=== PATIENT | male | born 1955 | race Caucasian/White ===

== ENCOUNTER 2019-08-18 08:18 | Outpatient (CLI) | payer MEDICARE, SELFPAY ==
[2019-08-18 08:54] LABS: Abs Immature Grans 0.02 k/cumm (0.0-0.09); Absolute Basophil Count 0.03 k/cumm (0.0-0.2); Absolute Eosinophil Count 0.03 k/cumm (0.0-0.7); Absolute Lymphocyte Count 0.65 k/cumm (1.2-3.4); Absolute Monocyte Count 0.88 k/cumm (0.11-0.7); Absolute Neutrophil Count 7.22 k/cumm (1.2-6.7); Basophils % 0.3; Eosinophils % 0.3; HCT 36.1 % (40.0-50.0); HGB 11.6 g/dL (13.5-17.5); Immature Grans % 0.2 %; Lymphocytes % 7.4; Mean Corp. HGB Concentration 32.1 g/dL (32.0-36.0); Mean Corpuscular Hemoglobin 30.6 pg (27.0-33.0); Mean Corpuscular Volume 95.3 fL (80-95); Mean Platelet Volume 8.5 fL (8.0-11.0); Neutrophils % 81.8; Platelet Count 350 x1000/uL (130-400); RBC 3.79 m/cumm (4.50-6.00); RBC Distribution Width 11.6 % (11.8-14.1); White Blood Cell Count 8.83 k/cumm (4.4-10.8)
[2019-08-18 09:11] LABS: ALT 18 U/L (16-63); AST 31 U/L (15-37); Albumin 2.8 g/dL (3.4-5.0); Alkaline Phosphatase 59 U/L (46-116); Anion Gap 7.1 mmol/L (3-11); BUN 17 mg/dL (7-18); Bilirubin, Total 0.3 mg/dL (0.2-1.0); CO2 32.9 mmol/L (21.0-32.0); CREATININE 0.67 mg/dL (0.70-1.30); Calcium 8.8 mg/dL (8.5-10.1); Chloride 97 mmol/L (98-107); Glucose 106 mg/dL (74-106); Magnesium 1.9 mg/dL (1.8-2.4); Potassium 4.2 mmol/L (3.5-5.1); Sodium 137 mmol/L (136-145); Total Protein 7.3 g/dL (6.4-8.2)
== END 2019-08-18 08:38 ==
PROVIDERS: PCP Internal Medicine Hematology & Oncology; Visit Provider Internal Medicine Hematology & Oncology
DX: C01 Malignant neoplasm of base of tongue (principal)
CPT/HCPCS: 36415; 80053; 83735; 85025

== ENCOUNTER 2019-08-25 08:03 | Outpatient (CLI) | payer MEDICARE, SELFPAY ==
[2019-08-25 08:19] LABS: Abs Immature Grans 0.01 k/cumm (0.0-0.09); Absolute Basophil Count 0.02 k/cumm (0.0-0.2); Absolute Eosinophil Count 0.15 k/cumm (0.0-0.7); Absolute Lymphocyte Count 0.79 k/cumm (1.2-3.4); Absolute Monocyte Count 1.02 k/cumm (0.11-0.7); Absolute Neutrophil Count 6.43 k/cumm (1.2-6.7); Basophils % 0.2; Eosinophils % 1.8; HCT 37.8 % (40.0-50.0); Immature Grans % 0.1 %; Lymphocytes % 9.4; Mean Corp. HGB Concentration 31.7 g/dL (32.0-36.0); Mean Corpuscular Hemoglobin 30.2 pg (27.0-33.0); Mean Platelet Volume 8.4 fL (8.0-11.0); Monocytes % 12.1; Neutrophils % 76.4; Platelet Count 332 x1000/uL (130-400); RBC 3.98 m/cumm (4.50-6.00); RBC Distribution Width 11.7 % (11.8-14.1); White Blood Cell Count 8.42 k/cumm (4.4-10.8)
[2019-08-25 08:47] LABS: ALT 25 U/L (16-63); AST 30 U/L (15-37); Albumin 2.8 g/dL (3.4-5.0); Alkaline Phosphatase 66 U/L (46-116); Anion Gap 5.4 mmol/L (3-11); BUN 23 mg/dL (7-18); Bilirubin, Total 0.4 mg/dL (0.2-1.0); CO2 37.6 mmol/L (21.0-32.0); Calcium 9.2 mg/dL (8.5-10.1); Chloride 93 mmol/L (98-107); Glucose 102 mg/dL (74-106); Magnesium 1.7 mg/dL (1.8-2.4); Potassium 3.7 mmol/L (3.5-5.1); Sodium 136 mmol/L (136-145); Total Protein 7.3 g/dL (6.4-8.2)
== END 2019-08-25 08:23 ==
PROVIDERS: PCP Internal Medicine Hematology & Oncology; Visit Provider Internal Medicine Hematology & Oncology
DX: C01 Malignant neoplasm of base of tongue (principal)
CPT/HCPCS: 36415; 80053; 83735; 85025

== ENCOUNTER 2019-09-01 08:32 | Outpatient (CLI) | payer MEDICARE, SELFPAY ==
[2019-09-01 08:55] LABS: Abs Immature Grans 0.03 k/cumm (0.0-0.09); Absolute Eosinophil Count 0.02 k/cumm (0.0-0.7); Absolute Lymphocyte Count 0.48 k/cumm (1.2-3.4); Absolute Monocyte Count 0.56 k/cumm (0.11-0.7); Absolute Neutrophil Count 9.52 k/cumm (1.2-6.7); Eosinophils % 0.2; HCT 33.9 % (40.0-50.0); HGB 10.7 g/dL (13.5-17.5); Immature Grans % 0.3 %; Lymphocytes % 4.5; Mean Corp. HGB Concentration 31.6 g/dL (32.0-36.0); Mean Platelet Volume 8.5 fL (8.0-11.0); Monocytes % 5.3; Neutrophils % 89.7; Platelet Count 264 x1000/uL (130-400); RBC 3.57 m/cumm (4.50-6.00); RBC Distribution Width 12.1 % (11.8-14.1); White Blood Cell Count 10.61 k/cumm (4.4-10.8)
[2019-09-01 09:11] LABS: ALT 22 U/L (16-63); AST 25 U/L (15-37); Alkaline Phosphatase 66 U/L (46-116); BUN 36 mg/dL (7-18); Bilirubin, Total 0.3 mg/dL (0.2-1.0); CREATININE 0.78 mg/dL (0.70-1.30); Calcium 9.1 mg/dL (8.5-10.1); Chloride 97 mmol/L (98-107); Glucose 91 mg/dL (74-106); Magnesium 1.8 mg/dL (1.8-2.4); Potassium 4.6 mmol/L (3.5-5.1); Sodium 136 mmol/L (136-145); Total Protein 6.9 g/dL (6.4-8.2)
== END 2019-09-01 08:52 ==
PROVIDERS: PCP Internal Medicine Hematology & Oncology; Visit Provider Internal Medicine Hematology & Oncology
DX: C01 Malignant neoplasm of base of tongue (principal)
CPT/HCPCS: 36415; 80053; 83735; 85025

== ENCOUNTER 2019-09-08 02:06 | Outpatient (RCR) | payer MEDICARE, SELFPAY | END 2019-09-12 23:59 | disposition home or self-care (01) | LOC: INF 02:06 | PROVIDERS: PCP Family Medicine; Visit Provider Internal Medicine Hematology & Oncology | DX: R69 Illness, unspecified (principal) ==

== ENCOUNTER 2019-09-08 08:40 | Outpatient (CLI) | payer MEDICARE, SELFPAY ==
[2019-09-08 09:04] LABS: Abs Immature Grans 0.01 k/cumm (0.0-0.09); Absolute Eosinophil Count 0.07 k/cumm (0.0-0.7); Absolute Lymphocyte Count 0.66 k/cumm (1.2-3.4); Absolute Monocyte Count 0.43 k/cumm (0.11-0.7); Absolute Neutrophil Count 3.29 k/cumm (1.2-6.7); Eosinophils % 1.6; HCT 32.4 % (40.0-50.0); HGB 10.4 g/dL (13.5-17.5); Immature Grans % 0.2 %; Lymphocytes % 14.8; Mean Corp. HGB Concentration 32.1 g/dL (32.0-36.0); Mean Corpuscular Hemoglobin 30.5 pg (27.0-33.0); Mean Platelet Volume 8.6 fL (8.0-11.0); Monocytes % 9.6; Neutrophils % 73.8; Platelet Count 190 x1000/uL (130-400); RBC 3.41 m/cumm (4.50-6.00); RBC Distribution Width 12.6 % (11.8-14.1); White Blood Cell Count 4.46 k/cumm (4.4-10.8)
[2019-09-08 09:16] LABS: ALT 21 U/L (16-63); AST 23 U/L (15-37); Albumin 3.1 g/dL (3.4-5.0); Alkaline Phosphatase 69 U/L (46-116); Anion Gap 4.6 mmol/L (3-11); BUN 26 mg/dL (7-18); Bilirubin, Total 0.2 mg/dL (0.2-1.0); CO2 34.4 mmol/L (21.0-32.0); CREATININE 0.88 mg/dL (0.70-1.30); Chloride 95 mmol/L (98-107); Glucose 103 mg/dL (74-106); Magnesium 1.6 mg/dL (1.8-2.4); Potassium 3.9 mmol/L (3.5-5.1); Sodium 134 mmol/L (136-145); Total Protein 7.2 g/dL (6.4-8.2)
== END 2019-09-08 09:00 ==
PROVIDERS: PCP Internal Medicine Hematology & Oncology; Visit Provider Internal Medicine Hematology & Oncology
DX: C01 Malignant neoplasm of base of tongue (principal)
CPT/HCPCS: 36415; 80053; 83735; 85025

== ENCOUNTER 2019-10-06 01:31 | Outpatient (RCR) | payer MEDICARE, SELFPAY ==
[2019-09-15] MEDS: Normal Saline Flush 10 ML SYR IVP (08:55)
[2019-09-15 09:01] LABS: Abs Immature Grans 0.01 k/cumm (0.0-0.09); Absolute Basophil Count 0.01 k/cumm (0.0-0.2); Absolute Eosinophil Count 0.04 k/cumm (0.0-0.7); Absolute Lymphocyte Count 0.49 k/cumm (1.2-3.4); Absolute Monocyte Count 0.18 k/cumm (0.11-0.7); Absolute Neutrophil Count 2.18 k/cumm (1.2-6.7); Basophils % 0.3; Eosinophils % 1.4; HCT 24.7 % (40.0-50.0); HGB 8.1 g/dL (13.5-17.5); Immature Grans % 0.3 %; Lymphocytes % 16.8; Mean Corp. HGB Concentration 32.8 g/dL (32.0-36.0); Mean Corpuscular Hemoglobin 31.3 pg (27.0-33.0); Mean Corpuscular Volume 95.4 fL (80-95); Mean Platelet Volume 9.1 fL (8.0-11.0); Monocytes % 6.2; RBC 2.59 m/cumm (4.50-6.00); RBC Distribution Width 12.8 % (11.8-14.1); White Blood Cell Count 2.91 k/cumm (4.4-10.8)
[2019-09-15 09:06] LABS: ALT 21 U/L (16-63); AST 23 U/L (15-37); Alkaline Phosphatase 62 U/L (46-116); Anion Gap 7.6 mmol/L (3-11); BUN 27 mg/dL (7-18); Bilirubin, Total 0.3 mg/dL (0.2-1.0); CO2 30.4 mmol/L (21.0-32.0); CREATININE 0.86 mg/dL (0.70-1.30); Calcium 8.3 mg/dL (8.5-10.1); Chloride 96 mmol/L (98-107); Glucose 93 mg/dL (74-106); Magnesium 1.4 mg/dL (1.8-2.4); Potassium 4.5 mmol/L (3.5-5.1); Sodium 134 mmol/L (136-145); Total Protein 6.6 g/dL (6.4-8.2)
[2019-09-15 09:26] LABS: Diff Comment Diff Reviewed; Platelet Count 95 x1000/uL (130-400)
[2019-09-15 09:27] LABS: RBC Morphology Normal
[2019-09-22 09:04] LABS: Abs Immature Grans 0.01 k/cumm (0.0-0.09); Absolute Eosinophil Count 0.01 k/cumm (0.0-0.7); Absolute Lymphocyte Count 0.27 k/cumm (1.2-3.4); Absolute Monocyte Count 0.21 k/cumm (0.11-0.7); Absolute Neutrophil Count 1.15 k/cumm (1.2-6.7); Eosinophils % 0.6; HCT 22.2 % (40.0-50.0); HGB 7.4 g/dL (13.5-17.5); Immature Grans % 0.6 %; Lymphocytes % 16.4; Mean Corp. HGB Concentration 33.3 g/dL (32.0-36.0); Mean Corpuscular Hemoglobin 31.4 pg (27.0-33.0); Mean Corpuscular Volume 94.1 fL (80-95); Mean Platelet Volume 9.5 fL (8.0-11.0); Monocytes % 12.7; Neutrophils % 69.7; RBC 2.36 m/cumm (4.50-6.00); RBC Distribution Width 12.9 % (11.8-14.1)
[2019-09-22] MEDS: Normal Saline Flush 10 ML SYR IVP (09:05)
[2019-09-22 09:23] LABS: ALT 25 U/L (16-63); AST 25 U/L (15-37); Albumin 2.8 g/dL (3.4-5.0); Alkaline Phosphatase 57 U/L (46-116); Anion Gap 4.7 mmol/L (3-11); BUN 22 mg/dL (7-18); Bilirubin, Total 0.2 mg/dL (0.2-1.0); CO2 30.3 mmol/L (21.0-32.0); CREATININE 0.92 mg/dL (0.70-1.30); Calcium 7.7 mg/dL (8.5-10.1); Chloride 94 mmol/L (98-107); Glucose 101 mg/dL (74-106); Magnesium 1.2 mg/dL (1.8-2.4); Potassium 4.3 mmol/L (3.5-5.1); Sodium 129 mmol/L (136-145); Total Protein 6.1 g/dL (6.4-8.2)
[2019-09-22 09:42] LABS: Platelet Count 83 x1000/uL (130-400); White Blood Cell Count 1.65 k/cumm (4.4-10.8)
[2019-09-22 09:43] LABS: Diff Comment Diff Reviewed; Hypochromasia 1+
[2019-09-25] MEDS: Normal Saline Flush 10 ML SYR IVP (08:54)
[2019-09-25 09:13] LABS: Absolute Basophil Count 0.01 k/cumm (0.0-0.2); Absolute Lymphocyte Count 0.41 k/cumm (1.2-3.4); Absolute Monocyte Count 0.37 k/cumm (0.11-0.7); Absolute Neutrophil Count 1.17 k/cumm (1.2-6.7); Basophils % 0.5; HCT 21.8 % (40.0-50.0); HGB 7.2 g/dL (13.5-17.5); Lymphocytes % 20.9; Mean Corpuscular Hemoglobin 31.2 pg (27.0-33.0); Mean Corpuscular Volume 94.4 fL (80-95); Mean Platelet Volume 9.7 fL (8.0-11.0); Monocytes % 18.9; Neutrophils % 59.7; Platelet Count 102 x1000/uL (130-400); RBC 2.31 m/cumm (4.50-6.00); RBC Distribution Width 13.7 % (11.8-14.1)
[2019-09-25 09:24] LABS: ALT 25 U/L (16-63); AST 27 U/L (15-37); Alkaline Phosphatase 54 U/L (46-116); Anion Gap 6.9 mmol/L (3-11); BUN 24 mg/dL (7-18); Bilirubin, Total 0.2 mg/dL (0.2-1.0); CO2 30.1 mmol/L (21.0-32.0); CREATININE 0.91 mg/dL (0.70-1.30); Calcium 8.1 mg/dL (8.5-10.1); Chloride 93 mmol/L (98-107); Glucose 97 mg/dL (74-106); Magnesium 1.2 mg/dL (1.8-2.4); Potassium 4.5 mmol/L (3.5-5.1); Sodium 130 mmol/L (136-145); Total Protein 6.5 g/dL (6.4-8.2)
[2019-09-25 09:32] LABS: White Blood Cell Count 1.96 k/cumm (4.4-10.8)
[2019-09-25 09:33] LABS: Diff Comment Diff Reviewed; Polychromasia Present
[2019-09-29] MEDS: Normal Saline Flush 10 ML SYR IVP (08:44)
[2019-09-29 09:01] LABS: Absolute Basophil Count 0.01 k/cumm (0.0-0.2); Absolute Eosinophil Count 0.01 k/cumm (0.0-0.7); Absolute Neutrophil Count 1.03 k/cumm (1.2-6.7); Basophils % 0.5; Eosinophils % 0.5; HCT 21.9 % (40.0-50.0); Lymphocytes % 16.2; Mean Corp. HGB Concentration 31.5 g/dL (32.0-36.0); Mean Corpuscular Hemoglobin 31.1 pg (27.0-33.0); Mean Corpuscular Volume 98.6 fL (80-95); Mean Platelet Volume 9.4 fL (8.0-11.0); Neutrophils % 55.8; Platelet Count 158 x1000/uL (130-400); RBC 2.22 m/cumm (4.50-6.00); RBC Distribution Width 15.7 % (11.8-14.1)
[2019-09-29 09:19] LABS: ALT 25 U/L (16-63); AST 27 U/L (15-37); Albumin 2.9 g/dL (3.4-5.0); Alkaline Phosphatase 54 U/L (46-116); Anion Gap 7.3 mmol/L (3-11); BUN 29 mg/dL (7-18); Bilirubin, Total 0.2 mg/dL (0.2-1.0); CO2 31.7 mmol/L (21.0-32.0); CREATININE 0.91 mg/dL (0.70-1.30); Calcium 8.4 mg/dL (8.5-10.1); Chloride 95 mmol/L (98-107); Glucose 90 mg/dL (74-106); Magnesium 1.7 mg/dL (1.8-2.4); Potassium 4.8 mmol/L (3.5-5.1); Sodium 134 mmol/L (136-145); Total Protein 6.2 g/dL (6.4-8.2)
[2019-09-29 09:24] LABS: HGB 6.9 g/dL (13.5-17.5); White Blood Cell Count 1.85 k/cumm (4.4-10.8)
[2019-09-29 09:25] LABS: Anisocytosis 1+; Diff Comment RBC Morph Reviewed; Hypochromasia 1+; Poikilocytes 1+; Polychromasia Present
[2019-09-30] VITALS (8 sets, daily range): BP systolic 116–145; BP diastolic 62–79; PULSE 65–80; RESP 18–19; TEMP 36.4–36.6; O2SAT 97–100
[2019-09-30] MEDS: Normal Saline Flush 10 ML SYR IVP (14:02)
[2019-09-30] MEDS: Heparin 500 UNITS/5 ML SYRINGE IV (14:03)
[2019-10-06] MEDS: Normal Saline Flush 10 ML SYR IVP (08:28)
[2019-10-06 08:35] LABS: Abs Immature Grans 0.08 k/cumm (0.0-0.09); Absolute Basophil Count 0.01 k/cumm (0.0-0.2); Absolute Eosinophil Count 0.03 k/cumm (0.0-0.7); Absolute Monocyte Count 1.18 k/cumm (0.11-0.7); Absolute Neutrophil Count 2.07 k/cumm (1.2-6.7); Basophils % 0.3; Eosinophils % 0.8; HCT 26.6 % (40.0-50.0); HGB 8.6 g/dL (13.5-17.5); Immature Grans % 2.2 %; Lymphocytes % 5.6; Mean Corp. HGB Concentration 32.3 g/dL (32.0-36.0); Mean Corpuscular Hemoglobin 31.6 pg (27.0-33.0); Mean Corpuscular Volume 97.8 fL (80-95); Mean Platelet Volume 9.1 fL (8.0-11.0); Monocytes % 33.1; Platelet Count 221 x1000/uL (130-400); RBC 2.72 m/cumm (4.50-6.00); RBC Distribution Width 16.1 % (11.8-14.1); White Blood Cell Count 3.57 k/cumm (4.4-10.8)
[2019-10-06 09:03] LABS: ALT 26 U/L (16-63); AST 24 U/L (15-37); Albumin 2.9 g/dL (3.4-5.0); Alkaline Phosphatase 61 U/L (46-116); Anion Gap 6.9 mmol/L (3-11); BUN 36 mg/dL (7-18); Bilirubin, Total 0.2 mg/dL (0.2-1.0); CO2 31.1 mmol/L (21.0-32.0); CREATININE 0.88 mg/dL (0.70-1.30); Calcium 8.2 mg/dL (8.5-10.1); Chloride 96 mmol/L (98-107); Glucose 87 mg/dL (74-106); Magnesium 1.6 mg/dL (1.8-2.4); Potassium 4.9 mmol/L (3.5-5.1); Sodium 134 mmol/L (136-145); Total Protein 6.3 g/dL (6.4-8.2)
== END 2019-10-11 23:59 | disposition home or self-care (01) ==
LOC: INF 01:31
PROVIDERS: PCP Internal Medicine Hematology & Oncology; Visit Provider Internal Medicine Hematology & Oncology
DX: C01 Malignant neoplasm of base of tongue (principal); D64.9 Anemia, unspecified; Z45.2 Encounter for adjustment and management of vascular access device
CPT/HCPCS: 36430; 36591; 80053; 86850; 86900; 86901; 86920; 83735; 85025; P9016

== ENCOUNTER 2019-11-03 09:07 | Observation (INO) | payer MEDICARE, SELFPAY ==
[2019-11-03] VITALS (19 sets, daily range): BP systolic 141–161; BP diastolic 80–100; PULSE 75–97; RESP 8–27; TEMP 36.9–37.4; O2SAT 98–100
--- NOTE | 2019-11-03 | DI.CT_ITS ---
EXAM: CT NECK W CLINICAL HISTORY: HX orapharyngeal ca TECHNIQUE: CT examination of the cervical region was performed following the contrast enhanced chest CT. COMPARISON: No exams were available for comparison FINDINGS: Patient reportedly has history of prior resection of oropharyngeal carcinoma. The visualized portions of the brain and orbits appear normal. The oropharyngeal and nasopharyngeal airways appear clear with presumed post surgical deformity of the oropharynx. No gross cervical mass or adenopathy seen. The epiglottis and aryepiglottic folds are grossly unremarkable. The supraglo ttic larynx is collapsed, please correlate clinically regarding any evidence of airway obstruction. No gross mass is identified at this level. Note is made of thrombus in the internal jugular vein on the right just above the insertion point of the central venous catheter. No gross subclavian or SVC thrombus identified. There appears to be m ild soft tissue edema around the site of the thrombus. No abscess identified in the cervical region. IMPRESSION: Post surgical changes of the oropharynx, no evidence of airway obstruction at this level. Collapsed supraglottic larynx, supraglottic edema not excluded but no gross mass identified, please c orrelate clinically. True cords appear to probably be anatomically intact. Right internal jugular vein thrombosis above the level of the insertion of right central venous nitin ter.
--- NOTE | 2019-11-03 09:15 | DI.RAD_ITS ---
EXAM: XR PORTABLE CHEST AP CLINICAL HISTORY: SOB TECHNIQUE: COMPARISON: No exams were available for comparison FINDINGS: There is right convex thoracic scoliosis. The heart is not enlarged. The lungs appear generally [place] ar. There is a right subclavian indwelling catheter the tip of which appears to lie near the junctio n of the SVC and right atrium. No pleural effusion identified on this frontal film. Healed right rib fractures noted. IMPRESSION: No evidence of acute process. Right subclavian catheter in position.
--- NOTE | 2019-11-03 09:22 | ED.GENADUL_ITS ---
Discharge Plan Discharge Details Chief Complaint: RespSymp Admit Date/Time: 11/03/19 16:12 Admit Provider: Eliecer Araya Attending Provider: Eliecer Araya Primary Care Provider: Jim Velasquez ED Provider: Vesna Jolley Discharge Data Discharge Date/Time-TO BE ENTERED AT DEPARTURE: 11/03/19 18:15 Medical Decision Making Eliecer Villafuerte is a 64-year-old man with history of oropharyngeal cancer who presented to the emergency department with sore throat shortness of breath who presented to the emergency department with shortness of breath and sore throat. On exam patient has hoarse voice that he reports is at baseline, handling secretions without issue, no respiratory distress. Unclear etiology of shortness of breath, whether related to upper airway issue versus pneumonia, pulmonary embolism, other. Exam/hx not c/w sepsis, airway compromise at this time. Plan for cxr, anticipate CT neck and chest, screening labs, COVID testing. CXR okay, plan for CT chest/neck. CT shows subglottic infection distal to the epiglottis, IJ thrombus. [facility] contacted directly after radiology report. Awaiting callback from oncology. Cefuroxime initiated. I discussed results with Pt. Pt has advanced directive on file stating DNR/DNI, which I also discussed with him. Pt states that he does not want to be intubated under any circumstances. Recieved callback from Dr. Velasquez, Pt's oncologist, who reports IJ thrombus is known, no emergent/urgent intervention to be taken. He agrees with cefuroxime, admission. Plan for dexamethasone and admission. Pt amenable. Clinical Impression: subglottic infection Disposition: [facility] inpatient Medical Records Medical records reviewed: Yes I reviewed the patient's medical records. Imaging Data Radiologic Study: Attestation: I personally reviewed and interpreted this imaging study as follows: Radiologist's impression: EXAM: CT CHEST PE CTA CLINICAL HISTORY: SOB, h/o oropharyngeal cancer TECHNIQUE: CT angiography of the chest was performed with injection of 60 cc Omnipaque 350. Axial CT angiography was performed with multi-slice acquisition and multi-planar and/or 3D reconstructions. COMPARISON: No exams were available for comparison FINDINGS: Images obtained through the upper abdomen show unremarkable appearance of visualized portions of the liver, spleen, adrenals, and kidneys. Gastrostomy feeding tube is noted in place. There is no evidence of pulmonary embolic disease. No thoracic aortic aneurysm or dissection seen. A right central venous catheter appears to terminate with its tip in the right atrium. No mediastinal or hilar adenopathy. Tracheobronchial tree appears intact. Lungs are clear except for bibasilar scarring. No pleural effusion or pleural-based mass. IMPRESSION: No evidence of pulmonary embolic disease. No evidence of acute process. EXAM: XR PORTABLE CHEST AP CLINICAL HISTORY: SOB TECHNIQUE: COMPARISON: No exams were available for comparison FINDINGS: There is right convex thoracic scoliosis. The heart is not enlarged. The lungs appear generally clear. There is a right subclavian indwelling catheter the tip of which appears to lie near the junction of the SVC and right atrium. No pleural effusion identified on this frontal film. Healed right rib fractures noted. IMPRESSION: No evidence of acute process. Right subclavian catheter in position. EXAM: CT NECK W CLINICAL HISTORY: HX orapharyngeal ca TECHNIQUE: CT examination of the cervical region was performed following the contrast enhanced chest CT. COMPARISON: No exams were available for comparison FINDINGS: Patient reportedly has history of prior resection of oropharyngeal carcinoma. The visualized portions of the brain and orbits appear normal. The oropharyngeal and nasopharyngeal airways appear clear with presumed post surgical deformity of the oropharynx. No gross cervical mass or adenopathy seen. The epiglottis and aryepiglottic folds are grossly unremarkable. The supraglottic larynx is collapsed, please correlate clinically regarding any evidence of airway obstruction. No gross mass is identified at this level. Note is made of thrombus in the internal jugular vein on the right just above the insertion point of the central venous catheter. No gross subclavian or SVC thrombus identified. There appears to be mild soft tissue edema around the site of the thrombus. No abscess identified in the cervical region. IMPRESSION: Post surgical changes of the oropharynx, no evidence of airway obstruction at this level. Collapsed supraglottic larynx, supraglottic edema not excluded but no gross mass identified, please correlate clinically. True cords appear to probably be anatomically intact. Right internal jugular vein thrombosis above the level of the insertion of right central venous catheter. Lab Data Lab results reviewed: Yes I reviewed the patient's lab results. Labs: 11/03/19 09:40 Nasopharynx Influenza Types A,B Antigen - Final Laboratory Tests Range/Units 11/03/19 11/03/19 11/03/19 09:30 09:30 09:30 WBC (4.4-10.8) k/cumm 1.51 L* RBC (4.50-6.00) m/cumm 2.15 L Hgb (13.5-17.5) g/dL 7.0 L Hct (40.0-50.0) % 21.5 L MCV (80-95) fL 100.0 H MCH (27.0-33.0) pg 32.6 MCHC (32.0-36.0) g/dL 32.6 RDW (11.8-14.1) % 18.4 H Plt Count (130-400) x1000/uL 43 L MPV (8.0-11.0) fL 9.5 Immature Gran % % 0.0 Neutrophils % 49.0 Band Neutrophils % % 8.0 Lymphocytes % 10.0 Monocytes % 28.0 Eosinophils % 3.0 Basophils % 2.0 Absolute Neutrophils (1.2-6.7) k/cumm 0.86 L Absolute Lymphocytes (1.2-3.4) k/cumm 0.15 L Absolute Monocytes (0.11-0.7) k/cumm 0.42 Absolute Eosinophils (0.0-0.7) k/cumm 0.05 Absolute Basophils (0.0-0.2) k/cumm 0.03 Nucleated RBCs /100WBC 1 Differential Comment Diff reviewed RBC Morphology See below Polychromasia Present Hypochromasia 1+ Anisocytosis 2+ PT (9.3-11.0) sec 10.8 INR (0.9-1.1) 1.1 Sodium (136-145) mmol/L 132 L Potassium (3.5-5.1) mmol/L 4.3 Chloride (98-107) mmol/L 96 L Carbon Dioxide (21.0-32.0) mmol/L 30.9 Anion Gap (3-11) mmol/L 5.1 BUN (7-18) mg/dL 29 H Creatinine (0.70-1.30) mg/dL 0.84 Estimated GFR/1.73 m2 (mL/min/1.73m2) >= 60.00 Glucose (74-106) mg/dL 133 H Calcium (8.5-10.1) mg/dL 8.5 Total Bilirubin (0.2-1.0) mg/dL 0.2 AST (15-37) U/L 15 ALT (16-63) U/L 19 Alkaline Phosphatase (46-116) U/L 59 Troponin I (<0.06) ng/Ml < 0.05 NT-Pro-B Natriuret Pep (<300) pg/mL 1267 H Total Protein (6.4-8.2) g/dL 6.4 Albumin (3.4-5.0) g/dL 2.5 L Urine Color (Yellow) Urine Clarity (Clear) Urine pH (5-8) Ur Specific Rockwell (1.005-1.025) Urine Protein (Negative) mg/dL Urine Ketones (Negative) mg/dL Urine Blood (Negative) Urine Nitrite (Negative) Urine Bilirubin (Negative) Urine Urobilinogen (Up TO 0.2) EU/dL Ur Leukocyte Esterase (Negative) Urine Glucose (Negative) mg/dL Range/Units 11/03/19 11/03/19 12:00 13:50 WBC (4.4-10.8) k/cumm RBC (4.50-6.00) m/cumm Hgb (13.5-17.5) g/dL Hct (40.0-50.0) % MCV (80-95) fL MCH (27.0-33.0) pg MCHC (32.0-36.0) g/dL RDW (11.8-14.1) % Plt Count (130-400) x1000/uL MPV (8.0-11.0) fL Immature Gran % % Neutrophils % Band Neutrophils % % Lymphocytes % Monocytes % Eosinophils % Basophils % Absolute Neutrophils (1.2-6.7) k/cumm Absolute Lymphocytes (1.2-3.4) k/cumm Absolute Monocytes (0.11-0.7) k/cumm Absolute Eosinophils (0.0-0.7) k/cumm Absolute Basophils (0.0-0.2) k/cumm Nucleated RBCs /100WBC Differential Comment RBC Morphology Polychromasia Hypochromasia Anisocytosis PT (9.3-11.0) sec INR (0.9-1.1) Sodium (136-145) mmol/L Potassium (3.5-5.1) mmol/L Chloride (98-107) mmol/L Carbon Dioxide (21.0-32.0) mmol/L Anion Gap (3-11) mmol/L BUN (7-18) mg/dL Creatinine (0.70-1.30) mg/dL Estimated GFR/1.73 m2 (mL/min/1.73m2) Glucose (74-106) mg/dL Calcium (8.5-10.1) mg/dL Total Bilirubin (0.2-1.0) mg/dL AST (15-37) U/L ALT (16-63) U/L Alkaline Phosphatase (46-116) U/L Troponin I (<0.06) ng/Ml < 0.05 NT-Pro-B Natriuret Pep (<300) pg/mL Total Protein (6.4-8.2) g/dL Albumin (3.4-5.0) g/dL Urine Color (Yellow) Yellow Urine Clarity (Clear) Clear Urine pH (5-8) 7.0 Ur Specific Rockwell (1.005-1.025) 1.015 Urine Protein (Negative) mg/dL Negative Urine Ketones (Negative) mg/dL Negative Urine Blood (Negative) Negative Urine Nitrite (Negative) Negative Urine Bilirubin (Negative) Negative Urine Urobilinogen (Up TO 0.2) EU/dL 1.0 H Ur Leukocyte Esterase (Negative) Negative Urine Glucose (Negative) mg/dL Negative ECG Data Attestation: I personally reviewed and interpreted this ECG (s) as follows: Interpretation: EKG shows sinus rhythm at 84, normal axis, no STEMI, nondiagnostic EKG HPI General Mode of arrival: ambulatory . Date/Time Provider Initiated Documentation: 11/03/19 09:19 . Limitations to Documentation: no limitations . Information obtained by: patient and old records reviewed . HPI Narrative: Eliecer Villafuerte is a 64-year-old man with history of oropharyngeal cancer currently on chemotherapy presenting to the emergency department shortness of breath. Patient reports that he has had 3 days of shortness of breath that seems mild. Patient reports that he is unable to speak due to his cancer at baseline, and can whisper only. Patient reports that this is unchanged. He reports that shortness of breath is worse with exertion and is very mild when he is at rest. Denies throat tightness. Patient reports that he has some baseline cough, but this does seem worse in the past few days. He denies fevers, vomiting, diarrhea, weakness. Patient reports that he has a sore throat that he has had for the past week, he denies other pain. Last chemotherapy infusion was 6 days ago. Patient reports that he has a G-tube. Related Data Home Medications Medication Instructions Recorded Confirmed acetaminophen [Tylenol Extra 1,000 mg PO Q6H PRN 11/03/19 11/03/19 Strength] ascorbic acid (vitamin C) [Vitamin 500 mg PO DAILY 11/03/19 11/03/19 C] caffeine 200 mg PO DAILY 11/03/19 11/03/19 cholecalciferol (vitamin D3) 4,000 unit PO DAILY 11/03/19 11/03/19 [Vitamin D3] dextromethorphan-guaifenesin 10 ml PO Q8H PRN 11/03/19 11/03/19 [Robitussin Cough-Chest Carlos DM] garlic extract 600 mg PO DAILY 11/03/19 11/03/19 ibuprofen 200 mg PO Q6H PRN 11/03/19 11/03/19 inositol 500 mg PO DAILY 11/03/19 11/03/19 magnesium oxide 400 mg PO DAILY 11/03/19 11/03/19 nystatin 500,000 unit PO TID 11/03/19 11/03/19 omega [id number] oil [Fish Oil] 1 cap PO DAILY 11/03/19 11/03/19 ondansetron 8 mg PO Q8H PRN 11/03/19 11/03/19 oxycodone 5 mg PO Q4H PRN 11/03/19 11/03/19 prochlorperazine maleate 10 mg PO Q6H PRN 11/03/19 11/03/19 [Compazine] Allergies Allergy/AdvReac Type Severity Reaction Status Date / Time No Known Allergies Allergy Unverified 11/03/19 09:15 General Stated Complaint: RespSymp LESLIE: 3 Review of Systems Narrative: Constitutional: denies fevers Eyes: denies eye pain ENT: denies ear pain, dental pain, reports sore throat Cardiovascular: denies chest pain Respiratory: Reports shortness of breath, cough at baseline but somewhat worse than usual GI: denies abdominal pain, vomiting, diarrhea : denies flank pain MSK: denies back pain, neck pain, arthralgias, myalgias Skin: denies rash Neuro: denies headaches, numbness, weakness COUNTS INCLUDE 234 BEDS AT THE [facility] Medical History (Updated 11/03/19 @ 17:52 by Eliecer Araya) Laryngeal cellulitis (Acute) Pancytopenia due to antineoplastic chemotherapy (Acute) Throat cancer (Acute) Social History (Updated 11/03/19 @ 16:45 by Eliecer Araya) Smoking/Tobacco Use Status: Never Alcohol Intake: never Drug use: Never Substance use type: does not use Do you feel safe at home: Yes Do you feel safe in your relationship?: Yes Additional Social history: Lives alone in [facility]. He states his family is all . He is retired. He smoked for 20 years, but quit 30 years ago. No alcohol other drugs. Exam Narrative Exam Narrative: Constitutional: Chronically ill but acutely [id number], pleasant, converses with hoarse voice, walking about the emergency department without issue HENT: head atraumatic/normocephalic/normal inspection, mucous membranes moist, no drooling, no pooling of secretions Eyes: conjunctiva normal, sclera normal, pupils 3mm b/l Neck: no stridor, normal ROM, trachea midline, erythema to right side of neck patient reports is chronic secondary to radiation Chest: normal inspection Resp: normal work of breathing, LCTAB Cardio: normal rate, normal rhythm, no murmur appreciated GI: abdomen soft, non-tender, non-distended, G-tube in place Back: normal inspection, no rash Skin: warm, dry, normal color, no rash Neuro: alert, not altered, grossly non-focal, normal tone, normal gait Ext: no edema Psych: normal mood, normal affect, normal behavior Course Vital Signs Vital signs: Vital Signs Temperature 37.1 C 11/03/19 09:10 Pulse 92 H 11/03/19 09:10 Respiratory Rate 8 L 11/03/19 09:10 Blood Pressure 155/84 H 11/03/19 09:10 Pulse Oximetry 99 11/03/19 09:10 Temperature 37.1 C 11/03/19 09:10 Temperature Source Temporal Artery Scan 11/03/19 09:10 Pulse 92 H 11/03/19 09:10 Respiratory Rate 8 L 11/03/19 09:10 Respiratory Effort Non-Labored 11/03/19 09:12 Blood Pressure 155/84 H 11/03/19 09:10 Blood Pressure Position Sitting 11/03/19 09:10 Pulse Oximetry 99 11/03/19 09:10 Oxygen Delivery Method Room Air 11/03/19 09:10 Oxygen Flow Rate 0 11/03/19 09:10
[2019-11-03 09:59] LABS: HCT 21.5 % (40.0-50.0); Mean Corp. HGB Concentration 32.6 g/dL (32.0-36.0); Mean Corpuscular Hemoglobin 32.6 pg (27.0-33.0); Mean Platelet Volume 9.5 fL (8.0-11.0); RBC 2.15 m/cumm (4.50-6.00); RBC Distribution Width 18.4 % (11.8-14.1)
[2019-11-03 10:03] LABS: INR 1.1 (0.9-1.1); Prothrombin Time 10.8 sec (9.3-11.0)
[2019-11-03 10:12] LABS: ALT 19 U/L (16-63); AST 15 U/L (15-37); Albumin 2.5 g/dL (3.4-5.0); Alkaline Phosphatase 59 U/L (46-116); Anion Gap 5.1 mmol/L (3-11); BUN 29 mg/dL (7-18); Bilirubin, Total 0.2 mg/dL (0.2-1.0); CO2 30.9 mmol/L (21.0-32.0); CREATININE 0.84 mg/dL (0.70-1.30); Calcium 8.5 mg/dL (8.5-10.1); Chloride 96 mmol/L (98-107); Glucose 133 mg/dL (74-106); NT-proBNP 1267 pg/mL (<300); Potassium 4.3 mmol/L (3.5-5.1); Sodium 132 mmol/L (136-145); Total Protein 6.4 g/dL (6.4-8.2); Troponin I < 0.05 ng/Ml (<0.06)
[2019-11-03 10:22] LABS: White Blood Cell Count 1.51 k/cumm (4.4-10.8)
[2019-11-03 10:23] LABS: Platelet Count 43 x1000/uL (130-400)
[2019-11-03 10:24] LABS: Absolute Basophil Count 0.03 k/cumm (0.0-0.2); Absolute Eosinophil Count 0.05 k/cumm (0.0-0.7); Absolute Lymphocyte Count 0.15 k/cumm (1.2-3.4); Absolute Monocyte Count 0.42 k/cumm (0.11-0.7); Absolute Neutrophil Count 0.86 k/cumm (1.2-6.7); Anisocytosis 2+; Diff Comment Diff Reviewed; Hypochromasia 1+; Nucleated RBC 1 /100WBC; Polychromasia Present
--- NOTE | 2019-11-03 11:06 | DI.CT_ITS ---
EXAM: CT CHEST PE CTA CLINICAL HISTORY: SOB, h/o oropharyngeal cancer TECHNIQUE: CT angiography of the chest was performed with injection of 60 cc Omnipaque 350. Axial CT angiography was performed with multi-slice acquisition and multi-planar and/or 3D reconstruc tions. COMPARISON: No exams were available for comparison FINDINGS: Images obtained through the upper abdomen show unremarkable appearance of visualized portions of the liver, spleen, adrenals, and kidneys. Gastrostomy feeding tube is noted in place. There is no evidence of pulmonary embolic disease. No thoracic aortic aneurysm or dissection seen. A right central venous catheter appears to terminate with its tip in the right atrium. No mediastina l or hilar adenopathy. Tracheobronchial tree appears intact. Lungs are clear except for bibasilar s carring. No pleural effusion or pleural-based mass. IMPRESSION: No evidence of pulmonary embolic disease. No evidence of acute process.
[2019-11-03 12:52] LABS: Bilirubin Negative (Negative); Blood Negative (Negative); Clarity Clear (Clear); Glucose Negative (Negative); Ketones Negative (Negative); Leukocyte Esterase Negative (Negative); Nitrite Negative (Negative); Specific Gravity 1.015 (1.005-1.025)
[2019-11-03] MEDS: Omnipaque 350 MG/ML 100 ML BTL IJ (13:03)
[2019-11-03 14:14] LABS: Troponin I < 0.05 ng/Ml (<0.06)
[2019-11-03] MEDS: Dexamethasone 10 MG/ML VIAL IVP (15:20)
--- NOTE | 2019-11-03 16:37 | HPE_ITS ---
Date of service: 11/03/19 Time of Service: 16:37 Assessment and Plan Assessment and plan (1) Laryngeal cellulitis: Status: Acute Assessment and plan: Patient's throat pain appears associated with the in flammation noted on his CAT scan. Per radiology, does not consistent with epiglottitis, but above this area. Is not clear if this is infectious or simply post radiation inflammation. Patient was started on cefuroxime in the emergency room. He certainly at risk for infection with his neutropenia. I expanded to third-generation cephalosporin and vancomycin for more full coverage of throat bacteria. He is also at risk for candidiasis of this area. Will treat with fluconazole via the NG tube. He did get some dexamethasone emergency room to decrease inflammation. I left it at 1 dose given the lack of benefit of continued dexamethasone administration for this medication. He has not showing signs of airway obstruction. Given the new cough in the setting of the coronavirus pandemic, he is on respiratory precautions with coronavirus swab pending. (2) Throat cancer: Status: Acute Assessment and plan: Patient's being seen at [facility] by Dr. Velasquez. Dr. Velasquez has been contacted emergency room regarding this patient and the plan reviewed by the emergency room physician. We will continue as needed antiemetics and pain medication. (3) Pancytopenia due to antineoplastic chemotherapy: Status: Acute Assessment and plan: Patient is pancytopenic related to his chemotherapy. The anemia is likely contributing to his shortness of breath with exertion. Given a blood shortage and lack of acute blood loss or active cardiac disease we will hold off on transfusion at this point. His ANC is not low enough to necessitate reverse precautions at this point. (4) DVT prophylaxis: Status: Acute Assessment and plan: Lovenox (5) Discharge planning issues: Status: Acute Assessment and plan: I did confirm with the patient he is DNR/DNI, and we did discuss he is at risk for airway obstruction. 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 He has been feeling gradually more short of breath for the past 4 days. He has had some cough with increased sput um production of thick yellow sputum. Shortness of breath has been mild, more with exertion. He denies feeling that his throat was going to close. He denies stridor. He had his last chemotherapy infusion 6 days ago. He denies fever. He denies wheezing and has no history of inhaler use or chronic lung disease. He does not take food or water by mouth and gets feeds through the G-tube. Patient has no known exposure to coronavirus. Review of Systems Narrative: Constitutional: denies fevers. He has lost weight. Eyes: denies eye pain or discharge. ENT: denies ear pain, dental pain, reports sore throat. His hoarseness is chronic Cardiovascular: denies chest pain or palpitations Respiratory: Reports shortness of breath, cough at baseline but somewhat worse than usual. No hemoptysis. GI: denies abdominal pain, vomiting, diarrhea : denies flank pain. No dysuria or hematuria. MSK: denies back pain, neck pain, arthralgias, myalgias Skin: denies rash or open wounds Neuro: He does have off and on diffuse headaches, but these have not changed recently. He denies numbness, weakness. He has felt lightheaded with standing at times, but denies passing out. [facility] Medical History (Updated 11/03/19 @ 17:52 by Eliecer Araya) Laryngeal cellulitis (Acute) Pancytopenia due to antineoplastic chemotherapy (Acute) Throat cancer (Acute) Social History (Updated 11/03/19 @ 16:45 by Eliecer Araya) Smoking/Tobacco Use Status: Never Alcohol Intake: never Drug use: Never Substance use type: does not use Do you feel safe at home: Yes Do you feel safe in your relationship?: Yes Additional Social history: Lives alone in [facility]. He states his family is all . He is retired. He smoked for 20 years, but quit 30 years ago. No alcohol other drugs. Meds Home Medications and Allergies Home Medications Medication Instructions Recorded Confirmed Type acetaminophen [Tylenol Extra 1,000 mg PO Q6H PRN 11/03/19 11/03/19 History Strength] ascorbic acid (vitamin C) [Vitamin 500 mg PO DAILY 11/03/19 11/03/19 History C] caffeine 200 mg PO DAILY 11/03/19 11/03/19 History cholecalciferol (vitamin D3) 4,000 unit PO DAILY 11/03/19 11/03/19 History [Vitamin D3] dextromethorphan-guaifenesin 10 ml PO Q8H PRN 11/03/19 11/03/19 History [Robitussin Cough-Chest Carlos DM] garlic extract 600 mg PO DAILY 11/03/19 11/03/19 History ibuprofen 200 mg PO Q6H PRN 11/03/19 11/03/19 History inositol 500 mg PO DAILY 11/03/19 11/03/19 History magnesium oxide 400 mg PO DAILY 11/03/19 11/03/19 History nystatin 500,000 unit PO TID 11/03/19 11/03/19 History omega 4-[id number]-[id number]-fish oil [Fish Oil] 1 cap PO DAILY 11/03/19 11/03/19 History ondansetron 8 mg PO Q8H PRN 11/03/19 11/03/19 History oxycodone 5 mg PO Q4H PRN 11/03/19 11/03/19 History prochlorperazine maleate 10 mg PO Q6H PRN 11/03/19 11/03/19 History [Compazine] Allergies Allergy/AdvReac Type Severity Reaction Status Date / Time No Known Allergies Allergy Unverified 11/03/19 09:15 Exam Narrative Exam Narrative: Constitutional: Chronically ill and with close fitting baggy, but acutely [id number], pleasant, converses with hoarse voice, walking about the emergency department without issue HENT: head atraumatic/normocephalic/normal inspection, mucous membranes moist, no drooling, no pooling of secretions Eyes: conjunctiva normal, sclera normal, pupils 3mm b/l Neck: no stridor, normal ROM, trachea midline, erythema to right side of neck patient reports is chronic secondary to radiation Chest: normal inspection Resp: normal work of breathing, LCTAB Cardio: normal rate, normal rhythm, no murmur appreciated GI: abdomen soft, non-tender, non-distended, G-tube in place Back: normal inspection, no rash Skin: warm, dry, normal color, no rash Neuro: alert, not altered, grossly non-focal with normal movement of 4 e xtremities, normal tone, normal gait Ext: no edema, nontender palpation Psych: normal mood, normal affect, normal behavior Results CT neck: Postsurgical changes of the oropharynx, no evidence of airway obstruction at this level. Collapsed supraglottic larynx, supraglottic edema not excluded but no gross mass identified. True cords appear anatomically int act. 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 Lungs are clear except for bibasilar scarring. Labs Result diagrams: 11/03/19 09:30 11/03/19 09:30 Labs: Laboratory Results - last 24 hr 11/03/19 11/03/19 11/03/19 09:30 09:30 09:30 WBC 1.51 L* RBC 2.15 L Hgb 7.0 L Hct 21.5 L MCV 100.0 H MCH 32.6 MCHC 32.6 RDW 18.4 H Plt Count 43 L MPV 9.5 Immature Gran % 0.0 Neutrophils % 49.0 Band Neutrophils % 8.0 Lymphocytes % 10.0 Monocytes % 28.0 Eosinophils % 3.0 Basophils % 2.0 Absolute Neutrophils 0.86 L Absolute Lymphocytes 0.15 L Absolute Monocytes 0.42 Absolute Eosinophils 0.05 Absolute Basophils 0.03 Nucleated RBCs 1 Differential Comment Diff reviewed RBC Morphology See below Polychromasia Present Hypochromasia 1+ Anisocytosis 2+ PT 10.8 INR 1.1 Sodium 132 L Potassium 4.3 Chloride 96 L Carbon Dioxide 30.9 Anion Gap 5.1 BUN 29 H Creatinine 0.84 Estimated GFR/1.73 m2 >= 60.00 Glucose 133 H Calcium 8.5 Total Bilirubin 0.2 AST 15 ALT 19 Alkaline Phosphatase 59 Troponin I < 0.05 NT-Pro-B Natriuret Pep 1267 H Total Protein 6.4 Albumin 2.5 L Urine Color Urine Clarity Urine pH Ur Specific [place] Urine Protein Urine Ketones Urine Blood Urine Nitrite Urine Bilirubin Urine Urobilinogen Ur Leukocyte Esterase Urine Glucose 11/03/19 11/03/19 12:00 13:50 WBC RBC Hgb Hct MCV MCH MCHC RDW Plt Count MPV Immature Gran % Neutrophils % Band Neutrophils % Lymphocytes % Monocytes % Eosinophils % Basophils % Absolute Neutrophils Absolute Lymphocytes Absolute Monocytes Absolute Eosinophils Absolute Basophils Nucleated RBCs Differential Comment RBC Morphology Polychromasia Hypochromasia Anisocytosis PT INR Sodium Potassium Chloride Carbon Dioxide Anion Gap BUN Creatinine Estimated GFR/1.73 m2 Glucose Calcium Total Bilirubin AST ALT Alkaline Phosphatase Troponin I < 0.05 NT-Pro-B Natriuret Pep Total Protein Albumin Urine Color Yellow Urine Clarity Clear Urine pH 7.0 Ur Specific [place] 1.015 Urine Protein Negative Urine Ketones Negative Urine Blood Negative Urine Nitrite Negative Urine Bilirubin Negative Urine Urobilinogen 1.0 H Ur Leukocyte Esterase Negative Urine Glucose Negative Last Vital Signs Temp 37.4 C 11/03/19 14:19 Pulse 95 H 11/03/19 14:19 Resp 11 L 11/03/19 10:50 BP 161/92 H 11/03/19 14:19 Pulse Ox 100 11/03/19 14:19 COVID-19 Screening Traveled to [place] from one of the affected countries or regions?: No Recent travel in the [place] within the last 8 weeks?: No Recent out of the country travel within the last 8 weeks?: No Exposure or possible exposure to illness during travel?: No Had IN PERSON contact w/suspected or confirmed C-19 person: No Have you had the following symptoms in the past few days?: Yes Symptoms noted since travel?: Fever and Lower Respiratory
[2019-11-03] MEDS: Enoxaparin 40 MG/0.4 ML SYR SC (19:00)
[2019-11-03] MEDS: cefTRIAXone 1 GM/50 ML BAG IVPB (19:01)
[2019-11-03] MEDS: Normal Saline Flush 10 ML SYR IVP (20:22)
[2019-11-03] MEDS: oxyCODONE 5 MG/5 ML CUP NG (21:22)
--- NOTE | 2019-11-03 22:01 | NUR.NOTE ---
Nursing Note: Pt is alert & oriented x 3. admitted in respiratory care unit. Sounds congested with intermittent productive cough, spat out lots of thick fruity secretions. Has right chest single port , flushed and with good blood returned. Pt wrote a small statement about his POA (see attached on the face sheet) and rewrote in admission comments by copywriter. Pt has harsh low pitched voice,requested copywriter to notify POA Clem Perez about his situation. Pt has g-tube and 1 pack of feeding given manually and flushed w/ 50 cc of tap water. site was cleansed w/ NS and covered w/ drain sponge.placement checked and no residual noted. Voided and resting quietly on bed.
[2019-11-04] MEDS: Acetaminophen 325 MG TAB NG ×2 (01:00→10:19)
[2019-11-04] MEDS: oxyCODONE 5 MG/5 ML CUP NG ×5 (02:50→22:11)
[2019-11-04] MEDS: Ondansetron 4 MG/2 ML VIAL IVP ×3 (03:20→17:53)
[2019-11-04] MEDS: Normal Saline Flush 10 ML SYR IVP ×5 (03:20→16:16)
[2019-11-04 03:45] VITALS: BP 140/79; PULSE 74; RESP 18; TEMP 36.2; O2SAT 95
[2019-11-04 07:02] LABS: Abs Immature Grans 0.01 k/cumm (0.0-0.09); HCT 22.6 % (40.0-50.0); HGB 7.5 g/dL (13.5-17.5); Mean Corp. HGB Concentration 33.2 g/dL (32.0-36.0); Mean Corpuscular Hemoglobin 32.9 pg (27.0-33.0); Mean Corpuscular Volume 99.1 fL (80-95); Mean Platelet Volume 10.9 fL (8.0-11.0); RBC 2.28 m/cumm (4.50-6.00); RBC Distribution Width 18.5 % (11.8-14.1)
[2019-11-04 07:25] LABS: Anion Gap 5.6 mmol/L (3-11); BUN 33 mg/dL (7-18); CO2 29.4 mmol/L (21.0-32.0); CREATININE 0.96 mg/dL (0.70-1.30); Calcium 8.5 mg/dL (8.5-10.1); Chloride 96 mmol/L (98-107); Glucose 292 mg/dL (74-106); Potassium 4.7 mmol/L (3.5-5.1); Sodium 131 mmol/L (136-145)
[2019-11-04 07:40] VITALS: BP 138/83; PULSE 80; RESP 20; TEMP 36.6; O2SAT 99
[2019-11-04 07:44] LABS: White Blood Cell Count 1.49 k/cumm (4.4-10.8)
[2019-11-04 07:45] LABS: Absolute Lymphocyte Count 0.09 k/cumm (1.2-3.4); Absolute Neutrophil Count 1.28 k/cumm (1.2-6.7); Platelet Count 53 x1000/uL (130-400)
[2019-11-04 07:46] LABS: Anisocytosis 2+; Diff Comment Manual Differential; Polychromasia Present
[2019-11-04 08:00] VITALS: O2SAT 99
[2019-11-04] MEDS: Cholecalciferol (Vitamin D3) 1,000 UNIT TAB 4000 UNITS NG (08:18)
[2019-11-04] MEDS: Fluconazole 100 MG TAB 400 MG NG (08:19)
[2019-11-04] MEDS: Magnesium Oxide 400 MG TAB NG (08:19)
[2019-11-04] MEDS: Ascorbic Acid 500 MG TAB NG (08:19)
[2019-11-04] MEDS: Omega-3 Fatty Acids 1000 MG CAP PO (08:19)
--- NOTE | 2019-11-04 09:18 | W.NUTCONSULT ---
Date of service: 11/04/19 Time of Service: 09:18 Nutritional Consult ASSESSMENT: 64 year old male admitted with laryngeal cellulitis secondary to chemotherapy treatment for throat cancer. Currently NPO, requiring tube feeding for all nutrient and fluid needs. BMI on low end of normal. Estimated Nutrient Needs: 3382-8762 kcal, 50-60 g protein, 6428-0116 ml fluid. Recommend Jevity 1.2: 50 cc/hour, total volume 1200ml, flush 150 ml q 6 hours providing total of 1440 kcal, 65 g protein, 1550 ml fluid. Will follow. INTERVENTION: NPO. Jevity 1.2 50 cc/hour (total volume 1200ml/24 hrs), flush 150 ml q 6 hours MONITORING AND EVALUATION: tolerance to enteral feeding, weight, labs Time Spent in Nutritional Counseling and Treatment: 0 time spent face to face
--- NOTE | 2019-11-04 10:52 | W.NUTRFU ---
Date of service: 11/04/19 Time of Service: 10:52 Nutritional Follow up NOTE: Addendum: At this time, Eliecer is receiving Isosource 1.5 enteral feeding, tolerating well and currently there are 10 cartons of this tube feeding in RICU. Recommend, initially using the 10 cartons of Isosource 1.5 @ 40cc /hour, total volume 960 ml, flush 200 ml q 6 hours providing 1440 kcal, 76 g protein, 1560 ml fluid. Will recommend switching to Jevity 1.2 in future. Time Spent in Nutritional Counseling and Treatment: 0 time spent face to face
[2019-11-04 12:35] VITALS: BP 125/78; PULSE 76; RESP 18; TEMP 36.6; O2SAT 98
--- NOTE | 2019-11-04 15:31 | PGE_ITS ---
Date of Service Date of service: 11/04/19 Time of Service: 15:31 Assessment and Plan Assessment and plan (1) Laryngeal cellulitis: Status: Acute Assessment and plan: evidence of supraglottic edema per CT, no fever since admission although he said at home it was 100.2. His neutropenia appears to be resolving. He says that his las chemo treatment was 10/19 and last XRT was 10/26. He recalls getting a blood transfusion but no Neupogen. He is currently on Vancomycin, Rocephin and Fluconazole. He feels a little better. Still coughs up much phlegm. No shortness of breath. Throat pain is a little better. I will continue Rocephin and Vancomycin through today and consider switch to oral antibiotics tomorrow. He does not get any oral feedings but is on PEG tube feedings. (2) Throat cancer: Status: Acute Assessment and plan: patient's medical oncologist is Dr. Velasquez and his radiation oncologist is Dr. Kidd both at [facility] in [facility]. He indicated to me that he was given 40% chance of a cure. (3) Pancytopenia due to antineoplastic chemotherapy: Status: Acute Assessment and plan: His overall WBC count and neutrophils are recovering (1490 and 1280 respectively) although he remains anemic but Hb is stable at 7.5 gm. His platelets are 53,000 Subjective Subjective Interval history since last seen: Patient states discomfort in his throat is a little improved compared to yesterday. He still coughing up copious amounts of white thick mucus. I suspect he has a mucositis from his laryngeal cancer for which she received radiation treatment. He is remained afebrile today. When he is not coughing he is not short of breath. Oxygen saturation remains 97 to 100% on room air. Exam Narrative Exam Narrative: middle aged male who looks older than his stated age. He is ambulating about the room w/out difficulty. Much coughing of thick white mucous. mouth appears dry despite the mucous. throat area is tender w/out visible Exudate. prominent Bimal's apple Without palpable fluctuance. Lungs w/ some scattered bilateral inspiratory and expiratory wheezing Heart is regular Abdomen soft and nontender. G tube appears ok. prominent inguinal hernia Objective Objective Clinical Data: Abnormal lab results 11/04/19 11/04/19 Range/Units 06:16 06:16 WBC 1.49 L* (4.4-10.8) k/cumm RBC 2.28 L (4.50-6.00) m/cumm Hgb 7.5 L (13.5-17.5) g/dL Hct 22.6 L (40.0-50.0) % MCV 99.1 H (80-95) fL RDW 18.5 H (11.8-14.1) % Plt Count 53 L (130-400) x1000/uL Absolute Lymphocytes 0.09 L (1.2-3.4) k/cumm Absolute Monocytes 0.10 L (0.11-0.7) k/cumm Sodium 131 L (136-145) mmol/L Chloride 96 L (98-107) mmol/L BUN 33 H (7-18) mg/dL Glucose 292 H D (74-106) mg/dL Vital Signs Temperature 36.6 C 11/04/19 12:35 Temperature Source Tympanic 11/04/19 12:35 Pulse 76 11/04/19 12:35 Pulse Rhythm Regular 11/04/19 07:40 Pulse 80 11/03/19 10:50 Respiratory Rate 18 11/04/19 12:35 Respiratory Effort Non-Labored 11/04/19 07:40 Respiratory Depth Normal 11/04/19 07:40 Respiratory Pattern Normal 11/04/19 07:40 Blood Pressure 125/78 11/04/19 12:35 Blood Pressure Mean 99 11/03/19 10:31 Blood Pressure Position Sitting 11/03/19 09:10 Pulse Oximetry 98 11/04/19 12:35 Oxygen Delivery Method Room Air 11/04/19 12:35 Oxygen Flow Rate 0 11/04/19 12:35 Pain Level 0 11/04/19 12:35 Comment 11/04/19 03:45 Intake & Output 11/03/19 11/04/19 11/04/19 23:59 11:59 23:59 Intake Total 340 / 340 30 / 30 Balance 340 / 340 30 / 30 Weight 48.988 kg Intake: IV 340 / 340 Other: Urine Color Yellow Yellow Urine Appearance Clear Clear Urine Odor Normal Comment pt up independently to toilet pt has been voiding in toilet Voiding Methods Toilet Toilet Laboratory Results WBC 1.49 k/cumm (4.4-10.8) L* 11/04/19 06:16 RBC 2.28 m/cumm (4.50-6.00) L 11/04/19 06:16 Hgb 7.5 g/dL (13.5-17.5) L 11/04/19 06:16 Hct 22.6 % (40.0-50.0) L 11/04/19 06:16 MCV 99.1 fL (80-95) H 11/04/19 06:16 MCH 32.9 pg (27.0-33.0) 11/04/19 06:16 MCHC 33.2 g/dL (32.0-36.0) 11/04/19 06:16 RDW 18.5 % (11.8-14.1) H 11/04/19 06:16 Plt Count 53 x1000/uL (130-400) L 11/04/19 06:16 MPV 10.9 fL (8.0-11.0) 11/04/19 06:16 Immature Gran % See Differential 11/04/19 06:16 Neutrophils % 86.0 11/04/19 06:16 Band Neutrophils % 8.0 % 11/03/19 09:30 Lymphocytes % 6.0 11/04/19 06:16 Monocytes % 7.0 11/04/19 06:16 Eosinophils % 0.0 11/04/19 06:16 Basophils % 0.0 11/04/19 06:16 Myelocytes % 1.0 % 11/04/19 06:16 Absolute Neutrophils 1.28 k/cumm (1.2-6.7) 11/04/19 06:16 Absolute Lymphocytes 0.09 k/cumm (1.2-3.4) L 11/04/19 06:16 Absolute Monocytes 0.10 k/cumm (0.11-0.7) L 11/04/19 06:16 Absolute Eosinophils 0.00 k/cumm (0.0-0.7) 11/04/19 06:16 Absolute Basophils 0.00 k/cumm (0.0-0.2) 11/04/19 06:16 Nucleated RBCs 1 /100WBC 11/03/19 09:30 Differential Comment Manual differential 11/04/19 06:16 RBC Morphology See below 11/04/19 06:16 Polychromasia Present 11/04/19 06:16 Hypochromasia 1+ 11/03/19 09:30 Anisocytosis 2+ 11/04/19 06:16 PT 10.8 sec (9.3-11.0) 11/03/19 09:30 INR 1.1 (0.9-1.1) 11/03/19 09:30 Sodium 131 mmol/L (136-145) L 11/04/19 06:16 Potassium 4.7 mmol/L (3.5-5.1) 11/04/19 06:16 Chloride 96 mmol/L (98-107) L 11/04/19 06:16 Carbon Dioxide 29.4 mmol/L (21.0-32.0) 11/04/19 06:16 Anion Gap 5.6 mmol/L (3-11) 11/04/19 06:16 BUN 33 mg/dL (7-18) H 11/04/19 06:16 Creatinine 0.96 mg/dL (0.70-1.30) 11/04/19 06:16 Estimated GFR/1.73 m2 >= 60.00 (mL/min/1.73m2) 11/04/19 06:16 Glucose 292 mg/dL (74-106) H D 11/04/19 06:16 Calcium 8.5 mg/dL (8.5-10.1) 11/04/19 06:16 Total Bilirubin 0.2 mg/dL (0.2-1.0) 11/03/19 09:30 AST 15 U/L (15-37) 11/03/19 09:30 ALT 19 U/L (16-63) 11/03/19 09:30 Alkaline Phosphatase 59 U/L (46-116) 11/03/19 09:30 Troponin I < 0.05 ng/Ml (<0.06) 11/03/19 13:50 NT-Pro-B Natriuret Pep 1267 pg/mL (<300) H 11/03/19 09:30 Total Protein 6.4 g/dL (6.4-8.2) 11/03/19 09:30 Albumin 2.5 g/dL (3.4-5.0) L 11/03/19 09:30 Urine Color Yellow (Yellow) 11/03/19 12:00 Urine Clarity Clear (Clear) 11/03/19 12:00 Urine pH 7.0 (5-8) 11/03/19 12:00 Ur Specific [place] 1.015 (1.005-1.025) 11/03/19 12:00 Urine Protein Negative mg/dL (Negative) 11/03/19 12:00 Urine Ketones Negative mg/dL (Negative) 11/03/19 12:00 Urine Blood Negative (Negative) 11/03/19 12:00 Urine Nitrite Negative (Negative) 11/03/19 12:00 Urine Bilirubin Negative (Negative) 11/03/19 12:00 Urine Urobilinogen 1.0 EU/dL (Up TO 0.2) H 11/03/19 12:00 Ur Leukocyte Esterase Negative (Negative) 11/03/19 12:00 Urine Glucose Negative mg/dL (Negative) 11/03/19 12:00
[2019-11-04 16:05] VITALS: BP 141/89; PULSE 71; RESP 17; TEMP 36.3; O2SAT 97
[2019-11-04] MEDS: cefTRIAXone 1 GM/50 ML BAG IVPB (18:23)
[2019-11-04] MEDS: Enoxaparin 40 MG/0.4 ML SYR SC (18:24)
[2019-11-05] VITALS: BP 136/82; PULSE 78; RESP 16; TEMP 36.2; O2SAT 99
[2019-11-05] MEDS: Normal Saline Flush 10 ML SYR IVP (02:55)
[2019-11-05] MEDS: oxyCODONE 5 MG/5 ML CUP NG (03:24)
[2019-11-05] MEDS: Cholecalciferol (Vitamin D3) 1,000 UNIT TAB 4000 UNITS NG (09:19)
[2019-11-05] MEDS: Ascorbic Acid 500 MG TAB NG (09:19)
[2019-11-05 09:21] VITALS: BP 140/85; PULSE 65; RESP 19; TEMP 36.5; O2SAT 98
[2019-11-05] MEDS: Fluconazole 100 MG TAB 400 MG NG (09:26)
[2019-11-05] MEDS: Magnesium Oxide 400 MG TAB NG (09:26)
[2019-11-05 11:44] VITALS: BP 141/92; PULSE 70; RESP 19; TEMP 36.1; O2SAT 96
[2019-11-05 12:53] LABS: Vancomycin, Trough 26.8 ug/mL (10.0-20.0)
--- NOTE | 2019-11-05 14:16 | NUR.NOTE ---
Pt requesting discharge. Refuses pain medication for throat pain d/t I'm going to be driving, I want to go home. I was told I was staying for one more dose of antibiotics that i got at 2am this morning and no doctor today! 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
--- NOTE | 2019-11-05 16:33 | NUR.NOTE ---
Nursing Note: Reported to this ICU nurse that patient is refusing cardiac monitoring.
[2019-11-05 16:54] LABS: COVID-19 RT-PCR Result Undetected (Undetected)
[2019-11-05 17:19] VITALS: PULSE 68
--- NOTE | 2019-11-05 17:49 | W.PM.DS.N ---
DS: Diagnosis Discharge Diagnosis (1) Laryngeal cellulitis: Status: Acute Asessment and Plan: Patient demonstrated laryngeal edema on his CT scan. There is no strong evidence of infection as he never had a fever. However considering that he was immunosuppressed patient was treated with vancomycin and Rocephin. Patient was discharged home for 5 more days of Augmentin as well as 5 days of prednisone to reduce the laryngeal edema. (2) Throat cancer: Status: Acute Asessment and Plan: Patient is to follow-up with his oncologist Dr. Velasquez. [facility] will arrange follow-up with him next week (3) Pancytopenia due to antineoplastic chemotherapy: Status: Acute Asessment and Plan: Patient's pancytopenia remained stable throughout his hospital course. Hemoglobin ranged between 7 and 7/2 g. White count remained at 1500. His neutropenia improved and at the time of discharge his absolute neutrophil count was 1280. 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 He has been feeling gradually more short of breath for the past 4 days. He has had some cough with increased sputum production of thick yellow sputum. Shortness of breath has been mild, more with exertion. He denies feeling that his throat was going to close. He denies stridor. He had his last chemotherapy infusion 6 days ago. He denies fever. He denies wheezing and has no history of inhaler use or chronic lung disease. He does not take food or water by mouth and gets feeds through the G-tube. Patient has no known exposure to coronavirus. Work-up in the emergency department included routine labs including CBC that showed a pancytopenia with a total white cell count of 1500 with an ANC of 860 and a hemoglobin of 7 g and a platelet count of 43,000. He was afebrile with a temperature of 37.1. He remained afebrile throughout his hospital course. Routine chemistry showed mildly elevated BUN of 33 with a normal creatinine 0.96 glucose of 292. Sodium was slightly low at 131. Troponin levels were less than 0.05?[address] imaging of his chest and neck were performed as well as a chest x-ray. Chest x-ray showed no acute process he has a healed right rib fracture no pleural effusion and is a right subclavian catheter in place CT of the chest confirmed no evidence of pulmonary embolism and no acute pulmonic process. CT of the soft tissues the neck showed postsurgical changes of the oropharynx with no evidence of airway obstruction at that level. There was collapse of the supraglottic larynx and with supraglottic edema but no gross mass was identified. True vocal cords appear to be anatomically intact. He has a chronic right internal jugular vein thrombosis above the level of the insertion of his right central venous catheter. There is no evidence of subclavian or SVC thrombosis. Patient was treated with IV fluids and started on antibiotics including vancomycin and Rocephin. Unfortunately no blood cultures were obtained. Nasal swab for influenza AMB was taken and found to be negative. Coronavirus serology was obtained and on the day of discharge came back undetected. Patient was treated with antiemetics as well as the vancomycin and Rocephin and Diflucan. He was given a one-time dose of Decadron 10 mg IV in the emergency department. Over the next couple days his throat discomfort did improve and his shortness of breath improved. On the day of discharge she had no fever and no nausea or vomiting and no dyspnea. Cough is improved and he was bringing up less mucus with his cough. Patient was desiring to return home. I made a call to the [facility] [place] and spoke with Apoorva Dominguez and she indicated that he had a follow-up on Sunday but they were going to try to move that to next Sunday so he could personally see his oncologist Dr. Velasquez. I inquired whether there would be any objection to putting him on short course of steroids to help with the edema of his larynx. She indicated that she would relay this to Dr. Velasquez but felt that he would have no objection to a short course. I indicated to her that I met a keep him on antibiotics for the next several days including Augmentin. Prescriptions for Augmentin 500 mg 3 times a day per his G-tube as well as prednisone 60 mg once a day for his G-tube x5 days was sent to his pharmacy [facility] in [facility]. Home Meds and New Rx's Prescriptions: New prednisone 5 mg/mL concentrate 60 mg feeding tube DAILY Qty: 60 RF: 0 amoxicillin-pot clavulanate [Augmentin] 250-62.5 mg/5 mL suspension for reconstitution 10 ml feeding tube TID 5 Days Qty: 150 RF: 0 Continued omega 1-imv-crd-fish oil [Fish Oil] 1,000 mg (120 mg-180 mg) Capsule 1 cap PO DAILY RF: 0 caffeine 200 mg Tablet 200 mg PO DAILY RF: 0 nystatin 100,000 unit/mL Suspension 500,000 unit PO TID RF: 0 oxycodone 5 mg/5 mL Solution 5 mg PO Q4H PRNRF: 0 prochlorperazine maleate [Compazine] 10 mg Tablet 10 mg PO Q6H PRNRF: 0 acetaminophen [Tylenol Extra Strength] 500 mg Tablet 1,000 mg PO Q6H PRNRF: 0 magnesium oxide 400 mg (241.3 mg magnesium) Tablet 400 mg PO DAILY RF: 0 ascorbic acid (vitamin C) [Vitamin C] 500 mg Tablet 500 mg PO DAILY RF: 0 ibuprofen 200 mg Tablet 200 mg PO Q6H PRNRF: 0 Robitussin Cough-Chest Carlos DM 5-100 mg/5 mL Liquid 10 ml PO Q8H PRNRF: 0 inositol 500 mg Tablet 500 mg PO DAILY RF: 0 ondansetron 4 mg Tablet,Disintegrating 8 mg PO Q8H PRNRF: 0 garlic extract 600 mg Tablet 600 mg PO DAILY RF: 0 Vitamin D3 4,000 unit Capsule 4,000 unit PO DAILY RF: 0 Discharge Instructions Instructions: Pharyngitis (GEN), Oral Mucositis (DC) Additional Instructions: [facility] will call you tomorrow to set follow up with you. If you do not hear from them then call them tomorrow afternoon to set your follow up with Dr. Velasquez Stand Alone Forms: Nursing Discharge Form Activity:: Activity as Tolerated Equipment/Supplies:: No Equipment Needed Diet:: Other Discharge Orders Discharge Orders: Discharge Order (Routine); Ordered 11/05/19 Ordered By: Miguel Ángel Bernard DS: Summary Status at Discharge Functional status at discharge: independent ambulation Overall status at discharge: patient is progressing back to baseline Mental Status: mental status grossly normal Speech and Movement: other Mood: congruent mood Affect: normal affect Exam Narrative Exam Narrative: Alert and oriented x3. No respiratory distress. No stridor. Psych Mental Status: mental status grossly normal Speech and Movement: other Mood: congruent mood Affect: normal affect DS: Data Vitals/I&O Vitals and I&O: Vital Signs Temperature 36.1 C L 11/05/19 11:44 Temperature Source Tympanic 11/05/19 11:44 Pulse 68 11/05/19 17:19 Pulse Rhythm Regular 11/05/19 17:19 Pulse 80 11/03/19 10:50 Respiratory Rate 19 11/05/19 11:44 Respiratory Effort 11/05/19 17:19 Respiratory Depth Normal 11/05/19 17:19 Respiratory Pattern Normal 11/05/19 17:19 Blood Pressure 141/92 H 11/05/19 11:44 Blood Pressure Mean 99 11/03/19 10:31 Blood Pressure Position Sitting 11/03/19 09:10 Pulse Oximetry 96 11/05/19 11:44 Oxygen Delivery Method Room Air 11/05/19 11:44 Oxygen Flow Rate 0 11/05/19 11:44 Pain Level 7 11/05/19 13:14 Comment 11/05/19 17:19 Intake & Output 11/04/19 11/05/19 11/05/19 23:59 11:59 23:59 Intake Total 600 / 830 200 / 210 10 / 210 Output Total 240 / 240 Balance 600 / 830 -40 / -30 10 / -30 Intake: IV 260 / 490 200 / 210 10 / 210 Oral 340 / 340 Output: Gastric Drainage 240 / 240 Lt Upper Quadrant 240 / 240 Other: Comment INDEPENDENT VOID X 1. Voiding Methods Toilet Toilet Toilet Data Completed and Pending Labs on day of discharge: Labs from last 24 hours 11/05/19 11/03/19 11:56 09:40 Vancomycin Trough 26.8 H* Coronavirus (PCR) Undetected [facility] Medical History Laryngeal cellulitis (Acute) Pancytopenia due to antineoplastic chemotherapy (Acute) Throat cancer (Acute) Social History (Updated 11/03/19 @ 16:45 by Eliecer Araya) Smoking/Tobacco Use Status: Never Alcohol Intake: never Drug use: Never Substance use type: does not use Current gender identity: male Do you feel safe at home: Yes Do you feel safe in your relationship?: Yes Additional Social history: Lives alone in [facility]. He states his family is all . He is retired. He smoked for 20 years, but quit 30 years ago. No alcohol other drugs.
== END 2019-11-05 17:55 | disposition home or self-care (01) ==
LOC: ER 12:14 → RMS 18:33
PROVIDERS: Admitting Provider Family Medicine; Emergency Provider Student in an Organized Health Care Education/Training Program; PCP Internal Medicine Hematology & Oncology; Visit Provider Internal Medicine
DX: J38.7 Other diseases of larynx (principal); C10.9 Malignant neoplasm of oropharynx, unspecified; D61.810 Antineoplastic chemotherapy induced pancytopenia; T45.1X5A Adverse effect of antineoplastic and immunosuppressive drugs, initial encounter; Z03.818 Encounter for observation for suspected exposure to other biological agents ruled out
CPT/HCPCS: 36591; 70491; 71275; 80048; 80053; 87449; 93005; 96365; 96375; 99219; 99233; 99238; 99285; J1650; U0003; 71045; 80202; 81003; 83880; 84484; 85025; 85610; 93010; 99217; 99226; J0696; J0697; J1100; J2405; J3490

== ENCOUNTER 2019-11-07 03:44 | Outpatient (RCR) | payer MEDICARE, SELFPAY ==
[2019-10-13 08:43] LABS: Abs Immature Grans 0.02 k/cumm (0.0-0.09); Absolute Basophil Count 0.02 k/cumm (0.0-0.2); Absolute Eosinophil Count 0.04 k/cumm (0.0-0.7); Absolute Lymphocyte Count 0.23 k/cumm (1.2-3.4); Absolute Monocyte Count 0.98 k/cumm (0.11-0.7); Absolute Neutrophil Count 3.81 k/cumm (1.2-6.7); Basophils % 0.4; Eosinophils % 0.8; HCT 25.5 % (40.0-50.0); HGB 8.2 g/dL (13.5-17.5); Immature Grans % 0.4 %; Lymphocytes % 4.5; Mean Corp. HGB Concentration 32.2 g/dL (32.0-36.0); Mean Corpuscular Hemoglobin 31.5 pg (27.0-33.0); Mean Corpuscular Volume 98.1 fL (80-95); Mean Platelet Volume 8.9 fL (8.0-11.0); Monocytes % 19.2; Neutrophils % 74.7; Platelet Count 216 x1000/uL (130-400); RBC Distribution Width 16.4 % (11.8-14.1)
[2019-10-13] MEDS: Normal Saline Flush 10 ML SYR IVP (08:48)
[2019-10-13 08:57] LABS: ALT 23 U/L (16-63); AST 19 U/L (15-37); Albumin 2.9 g/dL (3.4-5.0); Alkaline Phosphatase 65 U/L (46-116); Anion Gap 6.7 mmol/L (3-11); BUN 40 mg/dL (7-18); Bilirubin, Total 0.3 mg/dL (0.2-1.0); CO2 33.3 mmol/L (21.0-32.0); CREATININE 0.75 mg/dL (0.70-1.30); Calcium 8.1 mg/dL (8.5-10.1); Chloride 93 mmol/L (98-107); Glucose 90 mg/dL (74-106); Magnesium 1.3 mg/dL (1.8-2.4); Potassium 4.8 mmol/L (3.5-5.1); Sodium 133 mmol/L (136-145); Total Protein 6.4 g/dL (6.4-8.2)
[2019-10-13 09:30] LABS: Diff Comment RBC Morph Reviewed
[2019-10-13 09:31] LABS: Anisocytosis 1+; Hypochromasia 2+; Poikilocytes 1+; Polychromasia Present
[2019-10-20] MEDS: Normal Saline Flush 10 ML SYR IVP (08:20)
[2019-10-20 08:31] LABS: Abs Immature Grans 0.01 k/cumm (0.0-0.09); Absolute Basophil Count 0.01 k/cumm (0.0-0.2); Absolute Eosinophil Count 0.07 k/cumm (0.0-0.7); Absolute Lymphocyte Count 0.18 k/cumm (1.2-3.4); Absolute Monocyte Count 0.61 k/cumm (0.11-0.7); Absolute Neutrophil Count 1.41 k/cumm (1.2-6.7); Basophils % 0.4; Eosinophils % 3.1; HCT 22.7 % (40.0-50.0); HGB 7.4 g/dL (13.5-17.5); Immature Grans % 0.4 %; Lymphocytes % 7.9; Mean Corp. HGB Concentration 32.6 g/dL (32.0-36.0); Mean Corpuscular Hemoglobin 32.3 pg (27.0-33.0); Mean Corpuscular Volume 99.1 fL (80-95); Mean Platelet Volume 8.6 fL (8.0-11.0); Monocytes % 26.6; Neutrophils % 61.6; Platelet Count 123 x1000/uL (130-400); RBC 2.29 m/cumm (4.50-6.00); RBC Distribution Width 17.7 % (11.8-14.1); White Blood Cell Count 2.29 k/cumm (4.4-10.8)
[2019-10-20 08:44] LABS: ALT 21 U/L (16-63); AST 22 U/L (15-37); Albumin 2.8 g/dL (3.4-5.0); Alkaline Phosphatase 61 U/L (46-116); Anion Gap 4.1 mmol/L (3-11); BUN 40 mg/dL (7-18); Bilirubin, Total 0.2 mg/dL (0.2-1.0); CO2 31.9 mmol/L (21.0-32.0); CREATININE 0.92 mg/dL (0.70-1.30); Calcium 7.6 mg/dL (8.5-10.1); Chloride 98 mmol/L (98-107); Glucose 115 mg/dL (74-106); Magnesium 1.3 mg/dL (1.8-2.4); Potassium 5.1 mmol/L (3.5-5.1); Sodium 134 mmol/L (136-145); Total Protein 6.2 g/dL (6.4-8.2)
[2019-10-23] MEDS: Normal Saline Flush 10 ML SYR IVP (09:48)
[2019-10-23 10:01] LABS: Abs Immature Grans 0.01 k/cumm (0.0-0.09); Absolute Eosinophil Count 0.04 k/cumm (0.0-0.7); Absolute Lymphocyte Count 0.17 k/cumm (1.2-3.4); Absolute Monocyte Count 0.49 k/cumm (0.11-0.7); Absolute Neutrophil Count 2.49 k/cumm (1.2-6.7); Eosinophils % 1.3; HCT 24.1 % (40.0-50.0); HGB 7.7 g/dL (13.5-17.5); Immature Grans % 0.3 %; Lymphocytes % 5.3; Mean Corpuscular Hemoglobin 31.6 pg (27.0-33.0); Mean Corpuscular Volume 98.8 fL (80-95); Mean Platelet Volume 9.1 fL (8.0-11.0); Monocytes % 15.3; Neutrophils % 77.8; RBC 2.44 m/cumm (4.50-6.00); RBC Distribution Width 18.1 % (11.8-14.1)
[2019-10-23 10:20] LABS: ALT 38 U/L (16-63); AST 30 U/L (15-37); Albumin 2.9 g/dL (3.4-5.0); Alkaline Phosphatase 63 U/L (46-116); BUN 39 mg/dL (7-18); Bilirubin, Total 0.3 mg/dL (0.2-1.0); CREATININE 0.98 mg/dL (0.70-1.30); Calcium 8.1 mg/dL (8.5-10.1); Chloride 95 mmol/L (98-107); Glucose 112 mg/dL (74-106); Magnesium 1.2 mg/dL (1.8-2.4); Potassium 4.6 mmol/L (3.5-5.1); Sodium 132 mmol/L (136-145); Total Protein 6.5 g/dL (6.4-8.2)
[2019-10-23 10:22] LABS: Anisocytosis 1+; Diff Comment RBC Morph Reviewed; Platelet Count 82 x1000/uL (130-400)
[2019-10-27] VITALS (7 sets, daily range): BP systolic 141–162; BP diastolic 73–85; PULSE 62–77; RESP 16–20; TEMP 36.2–36.8; O2SAT 98–100
[2019-10-27] MEDS: Normal Saline Flush 10 ML SYR IVP (09:09)
[2019-10-27 09:21] LABS: Abs Immature Grans 0.01 k/cumm (0.0-0.09); Absolute Eosinophil Count 0.03 k/cumm (0.0-0.7); Eosinophils % 1.9; Immature Grans % 0.6 %; Lymphocytes % 6.5; Mean Corp. HGB Concentration 32.2 g/dL (32.0-36.0); Mean Corpuscular Volume 99.5 fL (80-95); Mean Platelet Volume 9.5 fL (8.0-11.0); Monocytes % 19.5; Neutrophils % 71.5; RBC 2.06 m/cumm (4.50-6.00); RBC Distribution Width 17.8 % (11.8-14.1)
[2019-10-27 09:27] LABS: ALT 28 U/L (16-63); AST 23 U/L (15-37); Albumin 2.8 g/dL (3.4-5.0); Alkaline Phosphatase 56 U/L (46-116); Anion Gap 6.7 mmol/L (3-11); BUN 42 mg/dL (7-18); Bilirubin, Total 0.2 mg/dL (0.2-1.0); CO2 31.3 mmol/L (21.0-32.0); CREATININE 0.98 mg/dL (0.70-1.30); Calcium 7.9 mg/dL (8.5-10.1); Chloride 94 mmol/L (98-107); Glucose 120 mg/dL (74-106); Magnesium 1.1 mg/dL (1.8-2.4); Potassium 4.6 mmol/L (3.5-5.1); Sodium 132 mmol/L (136-145); Total Protein 6.3 g/dL (6.4-8.2)
[2019-10-27 09:39] LABS: HGB 6.6 g/dL (13.5-17.5); White Blood Cell Count 1.54 k/cumm (4.4-10.8)
[2019-10-27 09:40] LABS: HCT 20.5 % (40.0-50.0); Platelet Count 38 x1000/uL (130-400)
[2019-10-27 09:41] LABS: Anisocytosis 1+; Diff Comment Diff Reviewed
[2019-10-27] MEDS: Heparin 500 UNITS/5 ML SYRINGE IV (14:32)
== END 2019-11-11 23:59 | disposition home or self-care (01) ==
LOC: INF 03:44
PROVIDERS: Internal Medicine Hematology & Oncology; PCP Internal Medicine Hematology & Oncology; Visit Provider Internal Medicine Hematology & Oncology
DX: C01 Malignant neoplasm of base of tongue (principal); Z45.2 Encounter for adjustment and management of vascular access device
CPT/HCPCS: 36430; 36591; 80053; 86850; 86900; 86901; 86920; 83735; 85025; P9016

== ENCOUNTER 2019-11-24 07:24 | Outpatient (RCR) | payer MEDICARE, SELFPAY | END 2019-12-11 23:59 | disposition home or self-care (01) | LOC: INF 07:24 | PROVIDERS: PCP Internal Medicine Hematology & Oncology; Visit Provider Internal Medicine Hematology & Oncology | DX: R69 Illness, unspecified (principal) ==